=== PATIENT | male | born 1995 | race Caucasian/White ===

== ENCOUNTER 2017-01-27 06:06 | Emergency (ER) | payer BC ==
[2017-01-27 06:48] LABS: HEMOGLOBIN 16.1 gm/dl (14.0-17.5); RED BLOOD COUNT 5.15 M/UL (4.20-5.50); WHITE BLOOD COUNT 4.5 K/UL (4.5-11.0)
[2017-01-27 07:04] LABS: BUN/CREATININE RATIO 13 (0-10)
== END 2017-01-27 08:06 | disposition home or self-care (01) ==
LOC: ER1 06:06
PROVIDERS: Emergency Medicine
DX: R10.9 Unspecified abdominal pain (principal); R31.9 Hematuria, unspecified; R11.0 Nausea; F17.200 Nicotine dependence, unspecified, uncomplicated; Z88.8 Allergy status to other drugs, medicaments and biological substances
CPT/HCPCS: 36415; 80053; 81001; 82150; 83690; 85025; 96374; 96375; 99284; J1885; J2270; J2405

== ENCOUNTER 2017-01-27 10:36 | Emergency (ER) | payer BC | END 2017-01-27 13:47 | disposition home or self-care (01) | LOC: ER1 10:36 | DX: N13.2 Hydronephrosis with renal and ureteral calculous obstruction (principal); F17.200 Nicotine dependence, unspecified, uncomplicated; Z87.442 Personal history of urinary calculi; Z88.8 Allergy status to other drugs, medicaments and biological substances | CPT/HCPCS: 96372; 99284; J1630 ==

== ENCOUNTER 2021-04-03 14:11 | Emergency (ER) | payer BC ==
[~2021-04-03 14:11] MED LIST: ALBUTEROL2.5 MG/3 M INH; LEVAQUIN750 MG PO; PROVENTIL HFA6.7 GM INH
[2021-04-03 15:07] LABS: HEMOGLOBIN 17.5 gm/dl (14.0-17.5); RED BLOOD COUNT 5.32 M/UL (4.20-5.50)
[2021-04-03 15:34] LABS: BUN/CREATININE RATIO 8 (0-10)
[2021-04-03] MEDS ORDERED: HYTRIN CAP 1 MG1 MG PO (16:34)
[2021-04-03] MEDS ORDERED: HYDROCODON-ACE1 EAC4 PO (16:34)
[2021-04-03] MEDS ORDERED: ZOFRAN ODT 4 MG4 MG PO (16:34)
[2021-04-03] MEDS ORDERED: TORADOL 10 MG T10 MG PO (16:34)
== END 2021-04-03 16:43 | disposition home or self-care (01) ==
LOC: ER1 14:11
PROVIDERS: Physician Assistant
DX: N13.2 Hydronephrosis with renal and ureteral calculous obstruction (principal); F17.290 Nicotine dependence, other tobacco product, uncomplicated
CPT/HCPCS: 80053; 81001; 85025; 96374; 96375; 96376; 99284; J1885; J2270; J2405; J7120

== ENCOUNTER 2021-10-26 23:20 | Emergency (ER) | payer BC ==
[~2021-10-26 23:20] MED LIST changes: +HYDROCODON-ACE1 EAC4 PO; +HYTRIN CAP 1 MG1 MG PO; +TORADOL 10 MG T10 MG PO; +ZOFRAN ODT 4 MG4 MG PO
[2021-10-27 00:24] LABS: HEMOGLOBIN 14.3 gm/dl (14.0-17.5); RED BLOOD COUNT 4.67 M/UL (4.20-5.50)
[2021-10-27] MEDS ORDERED: ZOFRAN 4 MG TAB4 MG PO (01:12)
[2021-10-27] MEDS ORDERED: ENDOCET 5-3251 EACH PO (01:14)
== END 2021-10-27 01:30 | disposition home or self-care (01) ==
LOC: ER1 23:20
PROVIDERS: Physician Assistant
DX: N13.2 Hydronephrosis with renal and ureteral calculous obstruction (principal); F17.290 Nicotine dependence, other tobacco product, uncomplicated; Z88.8 Allergy status to other drugs, medicaments and biological substances; Z87.442 Personal history of urinary calculi
CPT/HCPCS: 80053; 81001; 85025; 87086; 96374; 96375; 96376; 99284; J1885; J2270; J2405; J7030

== ENCOUNTER 2021-11-02 23:31 | Emergency (ER) | payer BC ==
[~2021-11-02 23:31] MED LIST changes: +ENDOCET 5-3251 EACH PO; +ZOFRAN 4 MG TAB4 MG PO
[2021-11-03] MEDS ORDERED: IBUPROFEN600 MG PO (00:07)
== END 2021-11-03 00:28 | disposition home or self-care (01) ==
LOC: ER1 23:31
DX: S63.601A Unspecified sprain of right thumb, initial encounter (principal); Z87.442 Personal history of urinary calculi; X50.9XXA Other and unspecified overexertion or strenuous movements or postures, initial encounter
CPT/HCPCS: 29125; 73130; 99283

== ENCOUNTER 2021-11-24 03:29 | Emergency (ER) | payer BC ==
[~2021-11-24 03:29] MED LIST changes: +IBUPROFEN600 MG PO
[2021-11-24 04:24] LABS: HEMOGLOBIN 14.7 gm/dl (14.0-17.5); RED BLOOD COUNT 4.68 M/UL (4.20-5.50); WHITE BLOOD COUNT 6.4 K/UL (4.5-11.0)
[2021-11-24 04:43] LABS: BUN/CREATININE RATIO 11 (0-10)
== END 2021-11-24 08:06 | disposition home or self-care (01) ==
LOC: ER1 03:29
PROVIDERS: Physician Assistant
DX: R07.89 Other chest pain (principal); R51.9 Headache, unspecified; F17.290 Nicotine dependence, other tobacco product, uncomplicated; Z88.8 Allergy status to other drugs, medicaments and biological substances; Z87.442 Personal history of urinary calculi
CPT/HCPCS: 71045; 80053; 80307; 81001; 82550; 82553; 84484; 85025; 87086; 93005; 96374; 96375; 99285; J1100; J1885; J2405